=== PATIENT | male | born 1955 | race Caucasian/White ===

== ENCOUNTER 2016-10-25 13:10 | Emergency (ER) | payer MEDICAID, MEDICARE, OTHER ==
[2016-10-25 13:25] VITALS: BP 154/102
--- NOTE | 2016-10-25 14:52 | XRAY Preliminary Report ---
Exam: XR Hand 3 View RT IMPRESSION: 1. PIP dislocation. 2. Possible fourth PIP dislocation. 3. There may be subluxation or dislocation of fourth metacarpal base. [facility] SITE ID: [id number]
--- NOTE | 2016-10-25 14:55 | XRAY Report ---
EXAM: RIGHT/ HAND RADIOGRAPHY EXAM DATE: 10/25/2016 02:37 PM. CLINICAL HISTORY: Injury. Right hand pain COMPARISON: None. TECHNIQUE: 3 views. FINDINGS: Bones: Third PIP dislocation. Fourth digit is flexed on the frontal views. Difficult to tell if this is the dislocated dorsal digit on the lateral view Fourth metacarpal base appears to overlap with the carpal Soft tissue swelling IMPRESSION: 1. PIP dislocation. 2. Possible fourth PIP dislocation. 3. There may be subluxation or dislocation of fourth metacarpal base. [facility] Referring Provider Line: [phone] SITE ID: [id number]
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
== END 2016-10-25 17:59 | disposition home or self-care (01) ==
LOC: ED 13:10
DX: S63.284A Dislocation of proximal interphalangeal joint of right ring finger, initial encounter (principal); S61.214A Laceration without foreign body of right ring finger without damage to nail, initial encounter; V18.4XXA Pedal cycle driver injured in noncollision transport accident in traffic accident, initial encounter; Y93.55 Activity, bike riding; Y92.488 Other paved roadways as the place of occurrence of the external cause; K21.9 Gastro-esophageal reflux disease without esophagitis
CPT/HCPCS: 26770; 99282; 99283

== ENCOUNTER 2016-11-12 10:09 | Day surgery (SDC) | payer MEDICARE ==
[2016-11-12] MEDS ORDERED: LACTATED RINGERS 1,000 ML IV ONE ×2 (10:24→13:44)
[2016-11-12] MEDS ORDERED: DEXAMETHASONE 4 MG/ML VIAL IVP ONE (13:15)
[2016-11-12] MEDS ORDERED: PROPOFOL 200 MG/20 ML VIAL IVP ONE (13:15)
[2016-11-12] MEDS ORDERED: MIDAZOLAM 2 MG/2 ML VIAL IVP ONE (13:15)
[2016-11-12] MEDS ORDERED: fentaNYL 100 MCG/2 ML VIAL IVP ONE (13:15)
[2016-11-12] MEDS ORDERED: ACETAMINOPHEN 1,000 MG/100 ML 100 ML IV ONE (13:15)
[2016-11-12] MEDS ORDERED: HYDROmorphone 1 MG/ML SYRINGE IVP ONE (13:15)
[2016-11-12] MEDS ORDERED: LIDOCAINE-MPF 2% 5 ML VIAL IM ONE (13:15)
[2016-11-12] MEDS ORDERED: SUCCINYLCHOLINE 200 MG/10 ML VIAL IVP ONE (13:15)
[2016-11-12] MEDS ORDERED: ceFAZolin 1 GM VIAL IV ONE (13:15)
[2016-11-12] MEDS ORDERED: HYDROmorphone 1 MG/ML SYRINGE ONE (15:36)
[2016-11-12 16:29] VITALS: BP 138/78
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
== END 2016-11-12 10:10 | disposition home or self-care (01) ==
LOC: SDS 10:09
PROVIDERS: ATTEND Orthopaedic Surgery
PROC: 0JNJ0ZZ Release Right Hand Subcutaneous Tissue and Fascia, Open Approach (ICD-10-PCS; principal; 2016-11-12 11:30)
PROC: 0JBJ0ZZ Excision of Right Hand Subcutaneous Tissue and Fascia, Open Approach (ICD-10-PCS; 2016-11-12 11:30)
DX: L08.89 Other specified local infections of the skin and subcutaneous tissue (principal); S60.41 Abrasion of fingers; M72.0 Palmar fascial fibromatosis [Dupuytren]; V19.9XXS Pedal cyclist (driver) (passenger) injured in unspecified traffic accident, sequela
CPT/HCPCS: 11043; 26123; J0131; J1170; J7120; 87070; 87205; 88304

== ENCOUNTER 2022-01-29 08:00 | Outpatient (CLI) | payer MEDICARE ==
[2022-01-29 16:10] LABS: CREATININE,URINE 84.6 mg/dL; MICROALBUM/CREATININE RATIO,UR 3.5 ug/mg (<30.0); MICROALBUMIN,URINE 0.3 mg/dL (0-300.0)
== END 2022-01-29 23:59 | disposition home or self-care (01) ==
LOC: LAB.R 08:00
PROVIDERS: ATTEND Internal Medicine
DX: I25.10 Atherosclerotic heart disease of native coronary artery without angina pectoris (principal); E11.9 Type 2 diabetes mellitus without complications; Z79.899 Other long term (current) drug therapy
CPT/HCPCS: 82043; 82570

== ENCOUNTER 2022-04-21 13:19 | Outpatient (CLI) | payer MEDICARE | END 2022-04-21 13:20 | disposition home or self-care (01) | LOC: LAB.N 13:19 | PROVIDERS: ATTEND Ophthalmology | DX: Z01.812 Encounter for preprocedural laboratory examination (principal); H25.811 Combined forms of age-related cataract, right eye; Z20.822 Contact with and (suspected) exposure to COVID-19 ==

== ENCOUNTER 2022-04-22 06:59 | Day surgery (SDC) | payer MEDICARE ==
--- NOTE | 2022-04-22 06:53 | ANESTHESIA ---
Pre-Anesthesia VS, & Labs - Diagnosis R senile combined cataract - Procedure R extraction cataract with IOL Height: 6 ft - NPO >8 hours - Lab Results Lab results reviewed: Yes Home Medications and Allergies Home Medications: Ambulatory Orders Gabapentin [Neurontin] 900 mg PO HS 04/21/22 Meloxicam [Mobic] 7.5 mg PO BID 04/21/22 metFORMIN [Glucophage] 1,000 mg PO DAILY 04/21/22 Lorazepam [Ativan] 1 mg PO DAILY 10/25/16 Omeprazole [PriLOSEC] 20 mg PO DAILY 10/25/16 Gabapentin [Neurontin] 900 mg PO HS 04/21/22 Meloxicam [Mobic] 7.5 mg PO BID 04/21/22 metFORMIN [Glucophage] 1,000 mg PO DAILY 04/21/22 Allergies/Adverse Reactions: Allergies Allergy/AdvReac Type Severity Reaction Status Date / Time No Known Drug Allergies Allergy Verified 04/22/22 07:18 Anes History & Medical History - Anesthetic History Anesthesia Complications: reports: No previous complications Family history of Anesthesia Complications: Denies Family history of Malignant Hyperthermia: Denies - Medical History Cardiovascular: reports: None Pulmonary: reports: Shortness of breath Gastrointestinal: reports: Cholelithiasis Urinary: reports: Nocturia Musculoskeletal: reports: Osteoarthritis Endocrine/Autoimmune: reports: Type 2 diabetes Skin: reports: None Smoking Status: Never smoker - Surgical History General: reports: Cholecystectomy Eyes Ears Nose Throat (EENT): reports: Other Cardiothoracic: reports: Other Exam General: Alert, Oriented x3, Cooperative Dental: WNL Mouth Opening: Greater than 4 Fingerbreadths Neck Mobility: Normal Mallampati classification: II Thyromental Distance: less than 4 cm Respiratory: Lungs clear, Normal breath sounds, No respiratory distress Cardiovascular: Regular rate Neurological: Normal speech Mental/Cognitive Status: Alert/Oriented X3, Normal for patient Cognitive Status: Within normal limits Plan Anesthesia Type: MAC Consent for Procedure(s) Verified and Reviewed: Yes Code Status: Attempt Resuscitation ASA classification: 2-Mild systemic disease Is this case an emergency?: No
[~2022-04-22 06:59] MED LIST: CYCLOPENTOLATE 1% OPHTH DROPS 2 ML ONE; KETOROLAC 0.45% OPHTH DROPS ONE; PHENYLEPHRINE 2.5% OPHTH 2 ML DROPS ONE; PROPARACAINE 0.5% OPHTH DROPS 15 ML ONE
[2022-04-22] MEDS ORDERED: LACTATED RINGERS 1,000 ML IV ONE ×2 (07:06→08:21)
[2022-04-22] MEDS ORDERED: MIDAZOLAM 2 MG/2 ML VIAL ONE (07:35)
[2022-04-22] MEDS ORDERED: TIMOLOL 0.5% OPHTH DROPS ONE (07:49)
[2022-04-22] MEDS ORDERED: EPINEPHrine 1 MG/ML AMP ONE (07:49)
[2022-04-22] MEDS ORDERED: TRIAMCIN/MOXIFLOX OPHTHALMIC 0.6 ML VIAL IO ONE ×4 (07:49→08:15)
[2022-04-22] MEDS ORDERED: VANCOMYCIN OPHTH (TOPICAL) 10 MG/ML SYRINGE ONE (07:49)
[2022-04-22] MEDS ORDERED: BSS/LIDOCAINE/EPINEPHRINE 1 ML SYRINGE ONE (07:49)
[2022-04-22] MEDS ORDERED: BRIMONIDINE 0.2% OPHTH DROPS 5 ML ONE (07:49)
[2022-04-22] MEDS ORDERED: BRIMONIDINE 0.2% OPHTH DROPS 5 ML OPTH ONE (08:15)
[2022-04-22] MEDS ORDERED: PROPARACAINE 0.5% OPHTH DROPS 15 ML RIGHTEYE ONE (08:15)
[2022-04-22] MEDS ORDERED: EPINEPHrine 1 MG/ML AMP IR ONE (08:15)
[2022-04-22] MEDS ORDERED: TIMOLOL 0.5% OPHTH DROPS OPTH ONE (08:15)
[2022-04-22] MEDS ORDERED: VANCOMYCIN OPHTH (TOPICAL) 10 MG/ML SYRINGE TOP ONE (08:15)
[2022-04-22] MEDS ORDERED: BSS/LIDOCAINE/EPINEPHRINE 1 ML SYRINGE IO ONE (08:15)
[2022-04-22] MEDS ORDERED: ONDANSETRON 4 MG/2 ML VIAL ONE (08:28)
--- NOTE | 2022-04-22 08:30 | ANESTHESIA POST OP EVALUATION ---
Anesthesia Post Eval - Post Anesthesia Eval Vitals: Last Vital Signs Temp 36.8 C 04/22/22 07:08 Pulse 88 04/22/22 07:08 Resp 16 04/22/22 07:08 BP 115/78 04/22/22 07:08 Pulse Ox 98 04/22/22 07:08 O2 Flow Rate CV Function Including HR & BP: Stable Pain Control: Satisfactory Nausea & Vomiting: Negative Mental Status: Baseline Respiratory Status: Airway Patent Hydration Status: Satisfactory Anesthesia Complications: None
--- NOTE | 2022-04-22 08:34 | OPERATIVE REPORT ---
Operative Report - Other Other Information/Narrative: Date of Surgery: 04/22/22 Preop Dx: Visually significant cataract right eye. This was the first cataract surgery. Postop Dx: Same Procedure: Phacoemulsification with posterior chamber intraocular lens implant right eye Surgeon: Dr. Shay Sabillon Anesthesia: Monitored anesthesia care Complications: None Operative Indications: This is a 66-year-old M with progressive vision loss in the right eye due to 1-2+ nuclear sclerotic and 2-3+ posterior subcapsular cataract. Best corrected visual acuity was 20/125 with glare to hand motion vision in the right eye. Indications for surgery were: - Overall decrease in vision - Difficulty seeing words on a computer screen - Difficulty reading - Difficulty seeing words, closed captions, or game scores on TV - Difficulty seeing street signs - Difficulty driving in low light or at night - Difficulty driving at night because of headlights from other vehicles - Difficulty with glare or bright lights in any situation - Difficulty tracking a golf ball - Decreased acuity with firearms The patient was consented at length concerning the risks and benefits of cataract surgery after which the patient expressed a desire to proceed with surgery. Operative Procedure: The patient was taken into OR#3 and placed under monitored anesthesia care. A surgical time-out was conducted confirming correct patient, correct procedure, and correct surgical site. The patient was given topical anesthesia and then prepped and draped in the usual sterile fashion. The eye was entered at the 6 and 3 oclock positions. Intracameral Shugarcaine was injected into the anterior chamber followed by a dispersive viscoelastic. A continuous-tear curvilinear capsulorhexis was performed. The nucleus was hydrodissected and phacoemulsified. The cortex was evacuated using automated infusion and aspiration. A cohesive viscoelastic was injected into the capsular bag and a 22.0 diopter intraocular lens was inserted into the bag. Infusion and aspiration were used to evacuate the viscoelastic materials from the eye. The wounds were hydrated and the eye inflated to physiologic pressure using balanced salt solution. Approximately 0.25ml of a mixture of triamcinolone and moxifloxacin was injected trans-sclerally into the vitreous in the inferotemporal quadrant using a 30 gauge cannula. An additional 0.55ml of a mixture of triamcinolone and moxifloxacin was injected subconjunctivally in the superior quadrant for infection and inflammation prophylaxis. Wound integrity was checked with Weck-Ita sponges. The patient was taken from the operating room in good condition and given post-op instructions.
[2022-04-22 08:56] VITALS: BP 102/72
== END 2022-04-22 07:00 | disposition home or self-care (01) ==
LOC: SDS 06:59
PROVIDERS: ATTEND Ophthalmology
DX: E11.36 Type 2 diabetes mellitus with diabetic cataract (principal); H25.811 Combined forms of age-related cataract, right eye; F41.9 Anxiety disorder, unspecified; Z87.891 Personal history of nicotine dependence; Z79.84 Long term (current) use of oral hypoglycemic drugs
CPT/HCPCS: 66984; A9270; J3490; J7120

== ENCOUNTER 2022-10-07 08:30 | Day surgery (SDC) | payer MEDICARE ==
[2022-10-07] MEDS: PROPARACAINE 0.5% OPHTH DROPS 15 ML ONE (08:50)
[2022-10-07] MEDS: PHENYLEPHRINE 2.5% OPHTH 2 ML DROPS ONE (08:50)
[2022-10-07] MEDS: KETOROLAC 0.45% OPHTH DROPS ONE (08:50)
[2022-10-07] MEDS: CYCLOPENTOLATE 1% OPHTH DROPS 2 ML ONE (08:50)
[2022-10-07] MEDS: LACTATED RINGERS 1,000 ML IV ONE ×2 (09:12→09:58)
[2022-10-07] MEDS ORDERED: MIDAZOLAM 2 MG/2 ML VIAL ONE (09:22)
--- NOTE | 2022-10-07 09:28 | ANESTHESIA ---
Pre-Anesthesia VS, & Labs - Diagnosis left eye senile combined cataract - Procedure left eye cataract extraction with IOL implant Vital Signs: Temp Pulse Resp BP Pulse Ox O2 Flow Rate 36.4 C L 80 17 133/85 H 100 10/07/22 08:50 10/07/22 08:50 10/07/22 08:50 10/07/22 08:50 10/07/22 08:50 Height: 6 ft Weight (kg): 93 kg Body Mass Index: 27.8 BMI Classification: Overweight - NPO >8 hours - Lab Results Current Lab Results: BS 207 Lab results reviewed: Yes Home Medications and Allergies Lorazepam [Ativan] 1 mg PO DAILY 10/25/16 Omeprazole [PriLOSEC] 20 mg PO DAILY 10/25/16 Gabapentin [Neurontin] 900 mg PO HS 04/21/22 Meloxicam [Mobic] 7.5 mg PO HS 04/21/22 metFORMIN [Glucophage] 1,000 mg PO DAILY 04/21/22 Allergies/Adverse Reactions: Allergies Allergy/AdvReac Type Severity Reaction Status Date / Time empagliflozin AdvReac Unknown Verified 10/06/22 13:38 [From Jardiance] Anes History & Medical History - Anesthetic History Anesthesia Complications: reports: No previous complications - Medical History Cardiovascular: reports: None Pulmonary: reports: Shortness of breath, Sleep apnea (questionable) Gastrointestinal: reports: None Urinary: reports: Nocturia Neuro: reports: None Musculoskeletal: reports: Osteoarthritis Endocrine/Autoimmune: reports: Type 2 diabetes Skin: reports: None Smoking Status: Never smoker Psychosocial: reports: No issues indicated History of Cancer?: No - Surgical History General: reports: Cholecystectomy Eyes Ears Nose Throat (EENT): reports: Cataracts, Other Cardiothoracic: reports: Other Exam General: Alert, Oriented x3, Cooperative, No acute distress Dental: Poor dentition Mouth Openin Fingerbreadth Neck Mobility: Normal Mallampati classification: III Thyromental Distance: 4-6 cm Mental/Cognitive Status: Alert/Oriented X3, Normal for patient Plan Anesthesia Type: MAC Consent for Procedure(s) Verified and Reviewed: Yes Code Status: Attempt Resuscitation ASA classification: 2-Mild systemic disease Is this case an emergency?: No
[2022-10-07] MEDS ORDERED: TRIAMCIN/MOXIFLOX OPHTHALMIC 0.6 ML VIAL IO ONE ×2 (09:32→09:48)
[2022-10-07] MEDS: BRIMONIDINE 0.2% OPHTH DROPS 5 ML OPTH ONE ×2 (09:32→09:51)
[2022-10-07] MEDS ORDERED: BRIMONIDINE 0.2% OPHTH DROPS 5 ML ONE ×2 (09:32→09:49)
[2022-10-07] MEDS ORDERED: EPINEPHrine 1 MG/ML AMP ONE ×2 (09:32→09:49)
[2022-10-07] MEDS: BSS/LIDOCAINE/EPINEPHRINE 1 ML SYRINGE IO ONE ×2 (09:33→09:52)
[2022-10-07] MEDS: TRIAMCIN/MOXIFLOX OPHTHALMIC 0.6 ML VIAL IO ONE ×2 (09:33→09:52)
[2022-10-07] MEDS ORDERED: TIMOLOL 0.5% OPHTH DROPS ONE ×2 (09:33→09:49)
[2022-10-07] MEDS: EPINEPHrine 1 MG/ML AMP IR ONE ×2 (09:33→09:51)
[2022-10-07] MEDS: TIMOLOL 0.5% OPHTH DROPS OPTH ONE ×2 (09:33→09:51)
[2022-10-07] MEDS ORDERED: BSS/LIDOCAINE/EPINEPHRINE 1 ML VIAL ONE ×2 (09:33→09:49)
[2022-10-07] MEDS: PROPARACAINE 0.5% OPHTH DROPS 15 ML LEFTEYE ONE ×2 (09:33→09:52)
[2022-10-07] MEDS: VANCOMYCIN OPHTH (TOPICAL) 10 MG/ML SYRINGE TOP ONE ×2 (09:34→09:52)
[2022-10-07] MEDS ORDERED: fentaNYL 100 MCG/2 ML VIAL ONE (09:50)
--- NOTE | 2022-10-07 10:06 | OPERATIVE REPORT ---
Operative Report - Other Other Information/Narrative: Date of Surgery: 10/07/22 Preop Dx: Visually significant cataract left eye. Cataract surgery was performed in the right eye on . Postop Dx: Same Procedure: Phacoemulsification with posterior chamber intraocular lens implant left eye Surgeon: Dr. Shay Sabillon Anesthesia: Monitored anesthesia care Complications: None Operative Indications: This is a 67-year-old M with progressive vision loss in the left eye due to 1-2+ nuclear sclerotic cataract. Best corrected visual acuity was 20/40 with glare to 20/70 vision in the left eye. Indications for surgery were: - Overall decrease in vision - Difficulty reading - Difficulty seeing words, closed captions, or game scores on TV - Difficulty seeing street signs - Difficulty driving in low light or at night The patient was consented at length concerning the risks and benefits of cataract surgery after which the patient expressed a desire to proceed with surgery. Operative Procedure: The patient was taken into OR#3 and placed under monitored anesthesia care. A surgical time-out was conducted confirming correct patient, correct procedure, and correct surgical site. The patient was given topical anesthesia and then prepped and draped in the usual sterile fashion. The eye was entered at the 6 and 3 oclock positions. Intracameral Shugarcaine was injected into the anterior chamber followed by a dispersive viscoelastic. A continuous-tear curvilinear capsulorhexis was performed. The nucleus was hydrodissected and phacoemulsified. The cortex was evacuated using automated infusion and aspiration. A cohesive viscoelastic was injected into the capsular bag and a 22.0 diopter intraocular lens was inserted into the bag. Infusion and aspiration were used to evacuate the viscoelastic materials from the eye. The wounds were hydrated and the eye inflated to physiologic pressure using balanced salt solution. Approximately 0.25ml of a mixture of triamcinolone and moxif loxacin was injected trans-sclerally into the vitreous in the inferotemporal quadrant using a 30 gauge cannula. An additional 0.25ml of a mixture of triamcinolone and moxifloxacin was injected subconjunctivally in the superior quadrant for infection and inflammation prophylaxis. Wound integrity was checked with Weck-Ita sponges. The patient was taken from the operating room in good condition and given post-op instructions.
[2022-10-07 10:14] VITALS: BP 123/95
== END 2022-10-07 08:31 | disposition home or self-care (01) ==
LOC: SDS 08:30
PROVIDERS: ATTEND Ophthalmology
DX: E11.36 Type 2 diabetes mellitus with diabetic cataract (principal); H25.12 Age-related nuclear cataract, left eye; Z79.84 Long term (current) use of oral hypoglycemic drugs; F41.9 Anxiety disorder, unspecified; I10 Essential (primary) hypertension; Z98.41 Cataract extraction status, right eye